=== PATIENT | female | born 1960 | race Caucasian/White ===

== ENCOUNTER → 2017-11-24 09:49 | Outpatient (CLI) | payer OTHER, SELFPAY ==
--- NOTE | 2017-11-24 09:52 | BI_ITS ---
MAMMOGRAPHY - BILATERAL SCREENING REASON FOR EXAM: Female, 57 years old. Routine annual screening examination. PERTINENT HISTORY: Non-contributory. TECHNIQUE: Digital bilateral breast asim (3D mammographic acquisition) in the CC and MLO projections. 2-D mediolateral oblique (MLO) and craniocaudad (CC) views of both breasts were obtained. CAD: Full Field Digital Mammography with Computer Added Detection was performed. COMPARISON: Comparison is made with prior study dated November 13, 2016 and November 13, 2015. FINDINGS: Breast Composition: There are scattered areas of fibroglandular density. There are no dominant masses or suspicious calcifications. No other significant abnormalities are identified. There has been no significant change since the prior study. BI/SCREENING MAMM (CAD), BILAT IMPRESSION: Stable bilateral screening mammogram. Yearly follow-up mammogram recommended. (A) ASSESSMENT CATEGORY: BIRADS Category 1: Negative. A letter regarding these results will be sent to the patient by the facility within 30 days. Approximately 10% of breast cancers are not detected by mammography. A normal mammogram should not delay biopsy of a clinically suspicious abnormality. [id number] Electronically Signed: Alexis Sylvester MD at 11:11 EDT Tel [phone], Service support ,
== END ==
PROVIDERS: Visit Provider Obstetrics & Gynecology Gynecology
DX: Z12.31 Encounter for screening mammogram for malignant neoplasm of breast (principal)
CPT/HCPCS: 77063; 77067

== ENCOUNTER → 2018-11-27 09:54 | Outpatient (CLI) | payer OTHER, SELFPAY ==
--- NOTE | 2018-11-27 09:56 | BI_ITS ---
MAMMOGRAPHY - BILATERAL SCREENING REASON FOR EXAM: Female, 58 years old. Routine annual screening examination. PERTINENT HISTORY: Non-contributory. TECHNIQUE: Digital bilateral breast pamela (3D mammographic acquisition) in the CC and MLO projections. 2-D mediolateral oblique (MLO) and craniocaudad (CC) views of both breasts were obtained. CAD: Full Field Digital Mammography with Computer Added Detection was performed. COMPARISON: Comparison is made with prior study dated November 24, 2017 and November 13, 2016. FINDINGS: Breast Composition: There are scattered areas of fibroglandular density. There are no dominant masses or suspicious calcifications. No other significant abnormalities are identified. There has been no significant change since the prior study. BI/SCREEN MAMM (CAD) W/PAMELA BILAT IMPRESSION: Stable bilateral screening mammogram. Yearly follow-up mammogram recommended. (A) ASSESSMENT CATEGORY: BIRADS Category 1: Negative. A letter regarding these results will be sent to the patient by the facility within 30 days. Approximately 10% of breast cancers are not detected by mammography. A normal mammogram should not delay biopsy of a clinically suspicious abnormality. [id number] Electronically Signed: Alexis Sylvester, at 8:53 EDT , Service support ,
== END ==
PROVIDERS: Referring Provider Obstetrics & Gynecology Gynecology; Visit Provider Obstetrics & Gynecology Gynecology
DX: Z12.31 Encounter for screening mammogram for malignant neoplasm of breast (principal)
CPT/HCPCS: 77063; 77067

== ENCOUNTER → 2019-12-02 | Outpatient (CLI) | payer OTHER, SELFPAY ==
--- NOTE | 2019-12-02 08:42 | BI_ITS ---
MAMMOGRAPHY - BILATERAL SCREENING REASON FOR EXAM: Female, 59 years old. Routine annual screening examination. PERTINENT HISTORY: Non-contributory. TECHNIQUE: Digital bilateral breast pamela (3D mammographic acquisition) in the CC and MLO projections. 2-D mediolateral oblique (MLO) and craniocaudad (CC) views of both breasts were obtained. CAD: Full Field Digital Mammography with Computer Added Detection was performed. COMPARISON: Comparison is made with prior study dated November 27, 2018 and November 24, 2017. FINDINGS: Breast Composition: The breasts are heterogeneously dense, which may obscure small masses. There are no dominant masses or suspicious calcifications. No other significant abnormalities are identified. There has been no significant change since the prior study. BI/SCREEN MAMM (CAD) W/PAMELA BILAT IMPRESSION: Stable bilateral screening mammogram. Yearly follow-up mammogram recommended. (A) ASSESSMENT CATEGORY: BIRADS Category 1: Negative. A letter regarding these results will be sent to the patient by the facility within 30 days. Approximately 10% of breast cancers are not detected by mammography. A normal mammogram should not delay biopsy of a clinically suspicious abnormality. [id number] Electronically Signed: Alexis Sylvester, at 9:49 EDT , Service support ,
== END | disposition home or self-care (01) ==
LOC: OPBI 08:40
PROVIDERS: Referring Provider Obstetrics & Gynecology Gynecology; Visit Provider Obstetrics & Gynecology Gynecology
DX: Z12.31 Encounter for screening mammogram for malignant neoplasm of breast (principal)
CPT/HCPCS: 77063; 77067

== ENCOUNTER → 2020-12-20 11:25 | Outpatient (CLI) | payer OTHER, SELFPAY ==
--- NOTE | 2020-12-20 11:29 | BI_ITS ---
MAMMOGRAPHY - BILATERAL SCREENING REASON FOR EXAM: Female, 60 years old. Routine annual screening examination. PERTINENT HISTORY: Screening TECHNIQUE: Digital bilateral breast pamela (3D mammographic acquisition) in the CC and MLO projections. 2-D mediolateral oblique (MLO) and craniocaudad (CC) views of both breasts were obtained. CAD: Full Field Digital Mammography with Computer Added Detection was performed. COMPARISON: Previous mammogram obtained on 12/02/2019 FINDINGS: Breast Composition: Heterogeneous There are no dominant masses or suspicious calcifications. No other significant abnormalities are identified. BI/SCRN MAMM (CAD)W/PAMELA BILAT IMPRESSION: Stable bilateral screening mammogram. Yearly follow-up mammogram recommended. (A) ASSESSMENT CATEGORY: BIRADS Category 1: Negative. A letter regarding these results will be sent to the patient by the facility within 30 days. Approximately 10% of breast cancers are not detected by mammography. A normal mammogram should not delay biopsy of a clinically suspicious abnormality. [id number] Electronically Signed: Unruly Soliman DO at 11:11 EDT Tel , Service support ,
== END ==
PROVIDERS: Referring Provider Obstetrics & Gynecology Gynecology; Visit Provider Obstetrics & Gynecology Gynecology
DX: Z12.31 Encounter for screening mammogram for malignant neoplasm of breast (principal)
CPT/HCPCS: 77063; 77067

== ENCOUNTER → 2022-02-27 | Outpatient (CLI) | payer OTHER, SELFPAY ==
--- NOTE | 2022-02-27 10:08 | BI_ITS ---
MAMMOGRAPHY - BILATERAL SCREENING REASON FOR EXAM: Female, 61 years old. Routine annual screening examination. PERTINENT HISTORY: Non-contributory. TECHNIQUE: Digital bilateral breast pamela (3D mammographic acquisition) in the CC and MLO projections. 2-D mediolateral oblique (MLO) and craniocaudad (CC) views of both breasts were obtained. CAD: Full Field Digital Mammography with Computer Added Detection was performed. COMPARISON: Comparison is made with prior study dated 12/20/2020 and 12/02/2019. FINDINGS: Breast Composition: The breasts are heterogeneously dense, which may obscure small masses. There are no dominant masses or suspicious calcifications. No other significant abnormalities are identified. There has been no significant change since the prior study. BI/SCRN MAMM (CAD)W/PAMELA BILAT IMPRESSION: Stable bilateral screening mammogram. Yearly follow-up mammogram recommended. (A) ASSESSMENT CATEGORY: BIRADS Category 1: Negative. A letter regarding these results will be sent to the patient by the facility within 30 days. Approximately 10% of breast cancers are not detected by mammography. A normal mammogram should not delay biopsy of a clinically suspicious abnormality. [id number] Electronically Signed: Alexis Sylvester MD at 12:25 EDT ,
--- NOTE | 2022-02-27 10:10 | BD_ITS ---
STUDY: DUAL ENERGY X-RAY ABSORPTIOMETRY / DXA REASON FOR EXAM: Female, 61 years old. M810 TECHNIQUE: Bone Mineral Density (BMD) measurements of lumbar spine and bilateral hips were obtained. COMPARISON: Comparison is made with prior study 02/03/2017. FINDINGS: Lumbar Spine (L1-L4): g/cm2 (0.885) / T-score (-1.5) / Z-score (0.2) Findings are suggestive of osteopenia with a low fracture risk. Left Femur Total: g/cm2 (0.905) / T-score (-0.3) / Z-score (0.9) Left Femoral Neck: g/cm2 (0.831) / T-score (-0.2) / Z-score (1.3) Right Femur Total: g/cm2 (0.865) / T-score (-0.6) / Z-score (0.5) Right Femoral Neck: g/cm2 (0.778) / T-score (-0.6) / Z-score (0.8) The T-Scores on the most recent prior examination were: Lumbar Spine (L1-L4): There has been worsening of bone density since the previous examination. Left Femur Total: which represents a worsening of 3.8%. Right Femur Total: which represents a worsening of 3.9%. BD/Dexa Bone Density Study IMPRESSION: The patient is considered osteopenic as outlined below according to World Chad Organization (WHO) criteria with a low fracture risk. There has been worsening of bone density since the previous examination. Reference Information: The T-score is the number of standard deviations above or below the standard which is normal for young adults at their peak bone mineral density. The World Health Organization (WHO) interprets the T-scores as follows: Above -1 Normal bone density Between -1 and -2.5 Osteopenia Equal to / or below -2.5 Osteoporosis As a practical clinical guideline, osteopenia may be graded as follows: Mild -1 through -1.5 Moderate -1.6 through -2.0 Severe -2.1 through -2.4 The Z-score is the number of standard deviations above or below age-matched controls. A Z-score of less than -1.5 would be considered abnormal. References: 1. NIH Osteoporosis and Related Bone Diseases www osteo.org 2. International Society for Clinical Densitometry www iscd.org 3. National Osteoporosis Foundation www nof.org Electronically Signed: Alexis Sylvester MD at 10:26 EDT ,
== END | disposition home or self-care (01) ==
LOC: OPBD 10:04
PROVIDERS: Referring Provider Obstetrics & Gynecology Gynecology; Visit Provider Obstetrics & Gynecology Gynecology
DX: Z12.31 Encounter for screening mammogram for malignant neoplasm of breast (principal); M85.80 Other specified disorders of bone density and structure, unspecified site; M81.0 Age-related osteoporosis without current pathological fracture
CPT/HCPCS: 77063; 77067; 77080

== ENCOUNTER → 2023-03-05 | Outpatient (CLI) | payer OTHER, SELFPAY ==
--- NOTE | 2023-03-05 11:56 | BI_ITS ---
MAMMOGRAPHY - BILATERAL SCREENING REASON FOR EXAM: Female, 62 years old. Routine annual screening examination. PERTINENT HISTORY: Non-contributory. TECHNIQUE: Digital bilateral breast pamela (3D mammographic acquisition) in the CC and MLO projections. 2-D mediolateral oblique (MLO) and craniocaudad (CC) views of both breasts were obtained. CAD: Full Field Digital Mammography with Computer Added Detection was performed. COMPARISON: Comparison is made with prior study February 27, 2022 and December 20, 2020. FINDINGS: Breast Composition: The breasts are heterogeneously dense, which may obscure small masses. There are no dominant masses or suspicious calcifications. Stable bilateral fat containing axillary lymph nodes. No other significant abnormalities are identified. There has been no significant change since the prior study. BI/SCRN MAMM (CAD)W/PAMELA BILAT IMPRESSION: Stable bilateral screening mammogram. Yearly follow-up mammogram recommended. (A) ASSESSMENT CATEGORY: BIRADS Category 2: Benign. A letter regarding these results will be sent to the patient by the facility within 30 days. Approximately 10% of breast cancers are not detected by mammography. A normal mammogram should not delay biopsy of a clinically suspicious abnormality. [id number] Electronically Signed: Alexis Sylvester MD at 15:13 EDT ,
== END | disposition home or self-care (01) ==
LOC: OPBI 11:55
PROVIDERS: Referring Provider Obstetrics & Gynecology Gynecology; Visit Provider Obstetrics & Gynecology Gynecology
DX: Z12.31 Encounter for screening mammogram for malignant neoplasm of breast (principal)
CPT/HCPCS: 77063; 77067

== ENCOUNTER → 2024-03-29 | Outpatient (CLI) | payer MEDICARE, OTHER, SELFPAY ==
--- NOTE | 2024-03-29 14:05 | BI_ITS ---
MAMMOGRAPHY - BILATERAL SCREENING REASON FOR EXAM: Female, 63 years old. Routine annual screening examination. PERTINENT HISTORY: Non-contributory. TECHNIQUE: Digital bilateral breast pamela (3D mammographic acquisition) in the CC and MLO projections. 2-D mediolateral oblique (MLO) and craniocaudad (CC) views of both breasts were obtained. CAD: Full Field Digital Mammography with Computer Added Detection was performed. COMPARISON: Comparison is made with prior study March 05, 2023 and February 27, 2022. FINDINGS: Breast Composition: The breasts are heterogeneously dense, which may obscure small masses. There are no dominant masses or suspicious calcifications. No other significant abnormalities are identified. There has been no significant change since the prior study. BI/SCRN MAMM (CAD)W/PAMELA BILAT IMPRESSION: Stable bilateral screening mammogram. Yearly follow-up mammogram recommended. (A) ASSESSMENT CATEGORY: BIRADS Category 1: Negative. A letter regarding these results will be sent to the patient by the facility within 30 days. Approximately 10% of breast cancers are not detected by mammography. A normal mammogram should not delay biopsy of a clinically suspicious abnormality. [id number] Electronically Signed: Alexis Sylvester MD at 14:45 EST ,
== END | disposition home or self-care (01) ==
LOC: OPBI 14:03
PROVIDERS: Referring Provider Obstetrics & Gynecology Gynecology; Visit Provider Obstetrics & Gynecology Gynecology
DX: Z12.31 Encounter for screening mammogram for malignant neoplasm of breast (principal)
CPT/HCPCS: 77063; 77067

== ENCOUNTER → 2025-03-29 | Outpatient (CLI) | payer MEDICARE, OTHER, SELFPAY ==
--- NOTE | 2025-03-29 13:28 | BI_ITS ---
EXAM: SCRN MAMM (CAD)W/PAMELA BILAT DATE: 03/29/2025 CLINICAL HISTORY: F, Age 64 y/o , SCREENING No family history. TECHNIQUE: Procedure Code: [id number] Modality: MG Procedure: SCRN MAMM (CAD)W/PAMELA BILAT COMPARISON: Prior exam(s) dated March 29, 2024.. FINDINGS: TISSUE DENSITY: The breasts are heterogeneously dense, which may obscure small masses. Bilateral Breast Mammographic Findings: No significant masses, calcifications or other abnormalities are identified. No suspicious masses, areas of developing architectural distortion, or suspicious calcifications. There has been no significant interval change. BI/SCRN MAMM (CAD)W/PAMELA BILAT IMPRESSION: Stable bilateral screening mammogram. OVERALL FINAL ASSESSMENT BI-RADS 1: NEGATIVE. RECOMMENDATION: Routine annual follow-up in 1 Year Additional Recommendation none A letter with findings and recommendations will be mailed to the patient. Reading Location: [place] [id number]
--- OUTSIDE RECORDS SUMMARY | 2025-03-29 18:33 | XMS RPT_ITS | CCD ---
Author Organization [facility] Inform ion Partnership [facility] Care Team Providers Care Phonograph Cartridge Assembler Name Role Phone MARIELA TALBERT Primary Care Unavaillisa Villatoro MD, Charlene Alexander Unavailable Mariela Talbert MD Primary Care Provider MARIELA TALBERT Referring MARIELA Gutierrez Primary Care UnavailJEOVANY Salcedo Attending Unavaila betsy TALBERT MD, MARIELA Primary Care Physician [phone] MARIELA TALBERT MD Primary Care Unavailab laura HUYNH MD, MARISSA Attending Unavailable AMINA ROSA, MARISSA Attending Unavailable MARIELA TALBERT MD Primary Care UnavailMariela Campo MD Primary Care Provider ELIGIO CAMPOS MSN HOTEL OFFICE MANAGER [facility] Primary Care Unava ilable Amina, Marissa Referring Unavailable Amina, Marissa Attending Unavailable Medications Current Medications Medication Drug Class(es) Dates Sig (Normalized) Sig (Original) acetaminophen 325 mg / HYDROcodone bitartrate 5 mg oral tablet (2 sources) Opioid Agonist Start: 09-20-2016 take 1 tablet by mouth every four hours as needed Hydrocodone-Acetamin ophen Active 1 TABLET PO EVERY 4 HOURS NEEDED September 20, 2016 12:00am cholecalciferol 0.05 mg oral tablet (5 sources) Vitamin D Start: 09-22-2016 take 1 tablet by mouth every week cholecalciferol (VITAMIN D3) 50 mcg (2,000 unit) tablet Take 5,000 Units by mouth one time a week. 09/22/2016 Active Start: 09-22-2016 VITAMIN D3 200 0 UNIT TABS 1 tablet once daily CHOLECALCIFEROL [id number] Steven Soliman RN Comment on above: Take 5,000 Units by mouth one time a week. cranberry fruit (CRANBERRY) 450 mg tab (4 sources) cranberry fruit (CRANBERRY) 450 mg tab Take 450 mg by mouth. Active cranberry fruit (CRANBERRY) 450 mg tab Take 450 mg by mouth. 0 Active Comment on above: Take 450 mg by mouth . Cranberry preparation (3 sources) Non-Standardized Food Allergenic Extract, Non-Standardized Plant Allergenic Extract Start: 12-03-2020 take 1 capsule by mouth once daily cranberry oral capsule Dose = 1 cap(s), Oral, Daily, 0 Refill(s) Start Date: 12/03/20 Status: Ordered Start: 08-27-2018 take 1 capsule by mo [facility] once daily CRANBERRY 500 MG CAPS 1 capusle by mouth daily CRANBERRY [id number] Charlene Villatoro MD D-Mannose (2 sources) Start: 07-27-2023 D-Mannose D-Ma nnose, 0 Refill(s), 68.1 Start Date: 07/27/23 Status: Ordered metFORMIN hydrochloride 1000 mg / SITagliptin 50 mg oral tablet (9 sources) Biguanide, Dipeptidyl Peptidase 4 Inhibitor Start: 09-22-2016 JANUMET XR 50-1000 M G [id number] 1 tablet twice daily SITAGLIPTIN-METFORMIN HCL [id number] Steven Soliman RN Start: 09-20-2016 take 1 tablet by vannesa th twice daily Janumet 50 / 1000 mg oral tablet Dose = 1 tab(s), Oral, BID, # 60 tab(s), 0 Refill(s) Start Date: 12/03/20 Status: Ordered Comment on above: Take 1 tablet by vannesa th twice daily with meals. Probiotic (2 sources) Start: 12-03-2020 Probiotic 0 Refill(s) Start Date: 12/03/20 Status: Ordered rosuvastatin calcium 20 mg oral tablet (6 sources) HMG-CoA Reductase Inhibitor Start: 12-03-2020 rosuvastatin 20 mg oral tablet Dose : 20 mg = 1 tab(s), Oral, Daily, 0 Refill(s) Start Date: 12/03/20 Status: Ordered Comment on above: Take 20 mg by mouth once daily. semaglutide 7 mg oral tablet (2 sources) Start: 02-17-2023 Rybelsus 7 mg oral tablet Dose : 7 mg = 1 tab(s), Oral, qDay, take at least 30 minutes before first food, beverage, or other oral meds, # 30 tab(s), 0 Refill(s) Start Date: 02/17/23 Status: Ordered Vitamin D3 (2 sources) Start: 12-03-2020 Vitamin D3 Dose : 5,000 unit(s) = 1 cap(s), Oral, qDay, 0 Refill(s) Start Date: 12/03/20 Status: Ordered Completed/Discontinued Medications Medication Drug Class(es) Dates Sig (Normalized) Sig (Original) aspirin 81 mg chewable tablet (1 source) Platelet Aggregation Inhibitor, Nonsteroidal Anti-inflammatory Drug Start: 09-22-2016 CHILDRENS ASPIRIN 81 MG CHEW 1 tablet once daily ASPIRIN [id number] Terena Soliman RN 90 day estradiol 0.179676 mg/hr vaginal system (2 sources) Estrogen Start: 07-27-2023 Estring 2 mg vaginal ring 2 mg Dose = 1 EA, Vaginal, i0edtoa, # 1 EA, 0 Refill(s), Pharmacy: [facility]/pharmacy #[id number], Urgency of urination Pelvic pain, 165, cm, 07/27/23 10:35:00 EDT, Height, kg, 07/27/23 10:35:00 EDT, Dosing Weight Start Date: 07/27/23 Status: Ordered ibuprofen 200 mg oral tablet (1 source) Nonsteroidal Anti-inflammatory Drug Start: 09-22-2016 ADVIL 200 MG TABS 3 tablets (600mg) as directed as needed for pain IBUPROFEN [id number] Terena Soliman RN naproxen sodium 550 mg oral tablet (1 source) Nonsteroidal Anti-inflammatory Drug Start: 08-27-2018 NAPROXEN SODIUM 550 MG TABS 1 tablet per day for arthritis NAPROXEN SODIUM [id number] Charlene Villatoro MD Problems Active Problems Problem Classification Problem Date Documented Date Episodic/Chronic Abdominal pain (2 sources) Pelvic and perineal pain; Translations: [Pelvic and perineal pain] Onset: 07-27-2023 Episodic Fracture of upper limb (1 source) Other intraarticular fracture of lower end of right radius, initial encounter for closed fracture; Translations: [Other intraarticular fracture of lower end of right radius, initial encounter for closed fracture] Onset: 08-27-2018 08-27-2018 Episodic Genitourinary symptoms and ill-defined conditions (2 sources) Urgency of urination; Translations: [Urgency of urination] Onset: 07-27-2023 Episodic Other and unspecified benign neoplasm (2 sources) History of polyp of colon; Translations: [Personal history of colonic polyps] 12-22-2022 Episodic Other and unspecified benign neoplasm (1 source) Personal history of colonic polyps; Translations: [Personal history of colonic polyps] Onset: 02-26-2023 Episodic Other connective tissue disease (1 source) Disorder of tendon; Translations: [Closed dislocation of other part of wrist] Onset: 09-24-2018 09-24-2018 Episodic Other screening for suspected conditions (not mental disorders or infectious disease) (1 source) Encounter for screening mammogram for malignant neoplasm of breast; Translations: [Encounter for screening mammogram for malignant neoplasm of breast] Onset: 04-26-2024 Episodic Residual codes; unclassified (2 sources) Family history of cancer of colon; Translations: [Family history of malignant neoplasm of digestive organs] 12-22-2022 Episodic Residual codes; unclassified (1 source) Family history of malignant neoplasm of digestive organs; Translations: [Family history of colon cancer] Onset: 02-26-2023 Episodic Past or Other Problems Problem Classification Problem Date Documented Da te Episodic/Chronic Fracture of upper limb (1 source) Closed fracture of neck of radius; Translations: [Nondisplaced fracture of neck of left radius, initial encounter for closed fracture] Onset: 09-24-2016 09-24-2016 Episodic Unclassified (1 source) Unspecified fracture of the lower end of right radius, initial encounter for closed fracture Onset: 08-24-2018 Unclassified (1 source) Problem Results Test Name Value Interpretation Reference Range Facility SCRN MAMM (CAD)[facility]/[place] [facility] 03-29-2024 SCRN MAMM (CAD)W/[facility] [address], [place] [address] SCRN MAMM (CAD)[facility] MR#: [id number] Acct: [id number] Name: MURIEL HARGROVE Rep #: [id number] : 1960 F 63 From: Alexis herrera MD PCP: MARIELA TALBERT Status: REG CL Study: SCRN MAMM (CAD)W/[place] [facility] Date of Exam: 03/18 07/11 Exam# [id number] Ordering Dr: Marissa Huynh MD [id number] MAMMOGRAPHY - BILATERAL SCREENING REASON FOR EXAM: Female, 63 years old. Routine annual screening examination. PERTINENT HISTORY: Non-contributory. TECHNIQUE: Digital bilateral breast [place] (3D mammographic acquisition) in the CC and MLO projections. 2-D mediolateral oblique (MLO) and craniocaudad (CC) views of both breasts were obtained. CAD: Full Field Digital Mammography with Computer Added Detection was performed. COMPARISON: Comparison is made with prior study March 05, 2023 and February 27, 2022. FINDINGS: Breast Composition: The breasts are heterogeneously dense, which may obscure small masses. There are no dominant masses or suspicious calcifications. No other significant abnormalities are identified. There has been no significant change since the prior study. BI/SCRN MAMM (CAD)W/[place] [facility] IMPRESSION: Stable bilateral screening mammogram. Yearly follow-up mammogram recommended. (A) ASSESSMENT CATEGORY: BIRADS Category 1: Negative. A letter regarding these results will be sent to the patient by the facility within 30 days. Approximately 10% of breast cancers are not detected by mammography. A normal mammogram should not delay biopsy of a clinically suspicious abnormality. [id number] Electronically Signed: Alexis Sylvester MD at 14:45 EST , CC: Dr. Marissa Huynh MD; MARIELA TALBERT Bilingual Speech Language Pathologist: Signed [facility] 03-28-2024 CNPN Telephone (AGENDOG) MURIEL HARGROVE ([id number]) 1960 F Date Time Provider Department 03/28/24 ENDO AGENDOG During your visit today, we recorded the following information about you: Nelson Landeros PSS 03/28/2024 4:46 PM Signed Patient placed an appt. Request on the web for DM 2 independent called and she asked me to call her back I called back in the afternoon and no VM set up. MADELYN Guallpa March 28, 2024 4:46 PM Allergies As of Date: 03/28/2024 (No Known Allergies) Date Reviewed: 02/26/2023 Reviewed by: Rob Syed - Fully Assessed Prescriptions as of 03/28/2024 - rosuvastatin (CRESTOR) 20 mg tablet Take 20 mg by mouth once daily. - cholecalciferol (VITAMIN D3) 50 mcg (2,000 unit) tablet Take 5,000 Units by mouth one time a week. - cranberry fruit (CRANBERRY) 450 mg tab Take 450 mg by mouth. - sitaGLIPtin-metFORMIN (JANUMET) 50-1,000 mg per tablet Take 1 tablet by mouth twice daily with meals. Problem List As Of Date: 03/28/2024 (None) Encounter Status:Closed by NELSON LANDEROS on 03/28/24 [facility] Aide Cytology Reporton 2023 Kindergarten Aide Cytology Report . Pathology Reports Accession: Collected Date/Time: Received Date/Time: Pathologist: [id number] 07/27/2023 14:00 EDT 07/27/2023 18:00 EDT Kindergarten Aide Cytology Report SPECIMEN: Specimen Description: Liquid Prep w/ HPV Specimen: Cervical/Endocervical Screening or Diagnostic: Screening RELEVANT HISTORY: LMP: menopausal SPECIMEN ADEQUACY: SATISFACTORY FOR EVALUATION Endocervical/Transform ational zone component absent/insufficient INTERPRETATION/RESULTS : NEGATIVE FOR INTRAEPITHELIAL LESION OR MALIGNANCY HIGH RISK HPV TESTING: Event Code Result HPV Interp See Interp HPVN HPV Interp Text: High Risk HPV Typing: NEGATIVE HPV types 16, 18, 31, 33, 35, 39, 45, 51, 52, 56, 58, 59, 66 and 68 DNA were undetectable or below the pre-set threshold. The rk High-Risk HPV DNA Test is not intended for use as a screening device for Pap normal women under age 30 and is not intended to substitute for regular Pap screening. The rk High-Risk HPV DNA Test is designed to augment existing methods for the detection of cervical disease and should be used in conjunction with clinical information derived from other diagnostic and screening tests, physical examinations and full medical history in accordance with appropriate patient management procedures. NOTE: A negative result does not preclude the presence of HPV infection because results depend on adequate specimen collection, absence of inhibitors and sufficient DNA to be detected. As of: 08/06/23 12:04 EDT COMMENT: This Pap Test was successfully processed and evaluated with the assistance of the [employer] ThinPrep Test Imaging System. Pathology Reports Accession: Collected Date/Time: Received Date/Time: Pathologist: [id number] 07/27/2023 14:00 EDT 07/27/2023 18:00 EDT Electronically Signed by Pathology report verified by [facility] Screened by: [place] Electronically signed by Marie DUVAL (ASCP) Sign-Out Date: 08/06/2023 12:04 Performing Lab: [facility], [address] [place] [address] Pathology Dept Disclaimer The Pap test is a screening test for cervical cancer. As evidenced by published data, it is subject to both inherent false negative and false positive results. Your patient's results should be interpreted in context with pertinent clinical history including gynecological examination. Normal [facility] ([place]) HPVon 07-31-2023 HPV Interp Normal See Interp HPVN [facility] ([place]) Comment on above: Order Comment: Order placed by AP_HPV_ORDER rule from [id number] Result Comment: High Risk HPV Typing: NEGATIVE HPV types 16, 18, 31, 33, 35, 39, 45, 51, 52, 56, 58, 59, 66 and 68 DNA were undetectable or below the pre-set threshold. The rk High-Risk HPV DNA Test is not intended for use as a screening device for Pap normal women under age 30 and is not intended to substitute for regular Pap screening. The rk High-Risk HPV DNA Test is designed to augment existing methods for the detection of cervical disease and should be used in conjunction with clinical information derived from other diagnostic and screening tests, physical examinations and full medical history in accordance with appropriate patient management procedures. NOTE: A negative result does not preclude the presence of HPV infection because results depend on adequate specimen collection, absence of inhibitors and sufficient DNA to be detected. See [facility]anner HPVN Performed By: #### H PV #### [place] [address] HPV Source Cervix Normal [facility] ([place]) Comment on above: Order Comment: Order placed by AP_HPV_ORDER rule from [id number] Performed By: #### H PV #### [place] [address] LABORATORYOrdered By: Nga Jacob on 07-27-2023 HPV Inter High Risk HPV Typing : NEGATIVEHPV types 16, 18, 31, 33, 35, 39, 45, 51, 52, 56, 58, 59, 66 and 68 DNA wereundetectable or below the pre-set threshold.The rk High-Risk HPV DNA Test is not intended for use as a screening device forPap normal women under age 30 and is not intended to substitute for regular Papscreening.The rk High-Risk HPV DNA Test is designed to augment existing methods for thedetection of cervical disease and should be used in conjunction with clinicalinformation derived from other diagnostic and screening tests, physical examinationsand full medical history in accordance with appropriate patient managementprocedures.N OTE: A negative result does not preclude the presence of HPV infection because resultsdepend on adequate specimen collection, absence of inhibitors and sufficientDNA to be detected. Normal See Interp HPVN AH Auto Viro/Sero SS Specimen source Nom (Unsp spec) Cervix (07/27/23 2:00 PM) Normal AH Auto Viro/Sero SS LABORATORYOrdered By: Julián mejia on 07-27-2023 Appearance (U) Clear (07/27/23 11:01 AM) Normal Clear AO Auto Urine SS Bilirubin Ql (U) Negative (07/27/23 11:01 AM) Normal Negative AO Auto Urine SS Color (U) Yellow (07/27/23 11:01 AM) Normal AO Auto Urine SS Glucose Test strip (U) [Mass/Vol] Negative Normal Negative AO Auto Urine SS Hemoglobin Auto test strip (U) [Mass/Vol] Trace *ABN* (07/27/23 11:01 AM) Invalid Interpretation Code Negative AO Auto Urine SS Ketones Ql (U) Negative Normal Negative AO Auto Ur ine SS UA Leuk Est Negative (07/27/23 11:01 AM) Normal Negative AO Auto Urine SS UA Nitrite Negative (07/27/23 11:01 AM) Normal Negative AO Auto Urine SS UA pH 7.0 (07/27/23 11:01 AM) Normal 5.0 - 8.0 AO Auto Urine SS UA Protein Negative Normal Negative AO Auto Urine SS UA Spec Grav 1.010 *ABN* (07/27/23 11:01 AM) Invalid Interpretation Code 1.015-1.025 AO Auto Urine SS UA Specimen Type Clean Catch (07/27/23 11:01 AM) Normal AO Auto Urine SS UA Urobilinogen 0.2 E.U./dL Normal 0.2-1.0 AO Auto Urine SS UAon 07-27-2023 Color (U) Yellow Normal [facility] ([place]) Comment on above: Performed By: #### U A #### [address] [address] Glucose (U) [Mass/Vol] Negative Normal Negative [facility] ([place]) Comment on above: Performed By: #### U A #### [place] [address] [place], [place] [address] Ketones Ql (U) Negative Normal Negative [facility] ([place]) Comment on above: Performed By: #### U A #### [address] [address] UA Appear Clear Normal Clear [facility] ([place]) Comment on above: Performed By: #### U A #### [address] [address] UA Blood Trace Abnormal Negative [facility] ([place]) Comment on above: Performed By: #### U A #### [address] [address] UA Leuk Est Negative Normal Negative [facility] ([place]) Comment on above: Performed By: #### U A #### [address] [address] UA Nitrite Negative Normal Negative [facility] ([place]) Comment on above: Performed By: #### U A #### [address] [address] UA pH 7.0 Normal 5.0 - 8.0 [facility] ([place]) Comment on above: Performed By: #### U A #### [address] [address] UA Protein Negative Normal Negative [facility] ([place]) Comment on above: Performed By: #### U A #### [address] [address] UA Spec Grav 1.010 Abnormal 1.015-1.025 [facility] ([place]) Comment on above: Performed By: #### U A #### [address] [address] UA Specimen Type Clean Catch Normal [facility] ([place]) Comment on above: Performed By: #### U A #### [address] [address] UA Urobilinogen 0.2 E.U./dL Normal 0.2-1.0 [facility] ([place]) Comment on above: Performed By: #### U A #### [address] [address] Urobilinogen (U) [Mass/Vol] Negative Normal Negative [facility] ([place]) Comment on above: Performed By: #### U A #### [place] [address] [address] SURGICAL PATHOLOGYOrdered By : Teo Azevedo on 03-02-2023 Case Report Surgical Pathology Report Case: [id number] Authorizing Provider: Jeovany Cohen, Collected: 02/26/2023 10:51 AM Ordering Location: Ambulatory Surgery Received: 02/26/2023 09:19 PM Pathologist: Teo Azevedo MD Specimen: TRANSVERSE COLON POLYP, proximal X2 [facility] Work Phone: FINAL DIAGNOSIS j1fzfGXjPLLgpJQgFPNh M1 jlkoQrGGUpyVQyN9Hbloxf SFspUO4zHO3nyTqhhSOhmX TrNNNjQjTti0ehe464nTGd b1mdMOCVlwdgzGu0qRabY2 6lf8C9EvaeK67tiTKdBLM8 HNXbNJQvtNUyFLEmUYN1QB GocNCmM7wjSHEcSM8pcyal MHskQFkiVOMqlTJ7LXVjfI XaY3PtGBCwKNhtOFRzoib4 FiTaPc6moSGdtTjuJKdsCT XwEAMuSSlfVWBmGtDpNE4v BEYiqN9iDYF1rzLuc9Adgj JkFVBajCzmQHIkjL4hm1d1 BTAgxnJpMTX2QiVqIYHeLU Odks8dKV7grSEakL== [facility] Work Phone: Gross Description h7oyjHJrROWhuWIKETF4 IjXS1mqPszcUu2fGqlYIKt ezR1vEOgIMfbf9mzDRO5w8 nlboILEwmzYAVsXN0aXBbz VWQtPC4uSbZlIVLdZrOfBZ BhcGVydzEyMjQwXHBhcGVy yAE6NBMwEP4ukzpqRBlcCT xeERPjtfJ3WSMszOWcZ9Lf XGOiOR6xpobdVPR5HZXGXf hbEc4xeVNnqPrpZaXqDoJf YXJzZXQwXGZuaWwgQXJpYW n0pC5KQsybTAC5BKVRQdsl NdggiMhoa8SjmRLdOZCdRK xcaWQgNTEwMDAgXFxkYiBP XiQaBoH1Vrh8ELc3FCHgSS m1VYffHrQWISn2TFp9HFNj VPd0VCdiUGfznYNbNJBfJU ZfNYKcUHhyvkL1q9jpPBOh gROaGEG8RGemk5jdHGvhJY F8KCNlRfXxZRRdPL1TNnAq SBXiFQh2NZW2NzO6ECv7HB DFMaKhIuApVub5NqL7TiVk QFg4KAl1AClIPmBiWTZwIf r6LPV4FUF9YXt6AeYgKDBp MiBcXHNzIDMgXFxmbCBcXG 4qgXhnGCIpIX8IDFIsUIof RMPvCeZjCX7dTRAUFuRUJU NJLJKZP5rNWqQQZ7yQNEzq dHJjaFxwYXIgDQpccGFyZC ANClxwbGFpblxsdHJjaFxm nfPtEPXyfVTGBCN7OM8aIO ANClxsdHJwYXJcbGluMFxy aO2rDD0AUHCmExOtFfLfDC g4TCWgfW3eEk0srWDppF0c XAQfBO30vFXpcRnjPVEzBF OcuvDwTzO4LU6wGUPtMgYx yImpm0PzSVXjS2MaN7J9wT 5jGSMwXXOjJkI8RFRaNfN9 QSFrCYZtaQ2qXQ11ESbpaN SzaUUgaQB4EUKhwE6rc09q GHDos4OrxQKlXlTcrYYgDG 6YDGSrrjHQWhfid9EtEHW4 HM7lylL5oE6sKFJjevExky 5bGYNeyVWAqSP0DXcdjyZy N7wzahylEIA3ZREiAAX5F0 dpNBVJpqTxTRFYkZL2XQwj rvBtHR9WENF3NBc5OQXrgk ANClxwYXIgDQpGRlMgMTAv MTMvMjAyMyAxOjUwIEFNXH BhciANClxzYTMwXGVwaWNY v5JoGQULXywrqLwgBgXwzI TvYpV2KUTciJUsMNR5JO5p dTzzAROfY1FrE7HrmwM7BZ PkutQWJelrGETkGH0EFPVy MjIgDQp9 [facility] Work Phone: Performing Lab a0nhwOKvEOZvrPYwSxYz MD PgFMHob3viHTLkzMMsOfDj MzNcZnRuYmpcdWMxXGRlZm Her1cgp529fODgq8ihFZLw AtU3zQLbUQFrdJDrN463NJ NgCNjkx3jfj8TyZAVhbDIc m9M4QRPLojoasZk7dInkM5 8ag6N0XimrN8xmSNSzSOEx D2UtAG2yPJKdXyu0THX8LF B7WGOwLROwJ9ZgWT2eTKJp sBGsPFz6c3dqvOrtXBMwXX W9a1orLYyfhfFjCQ6pwc0p tSf4j4tdtiZsOFXpDEReyL NQIFJcX9PisIjwLp6nxNo0 wIfgLucmMEQ8Ren6XX3aob 06roi5nBtmWCQpnazlFjR7 XVadDPNifbyhHCz7AVrcJP YyhOI9FSNdhNCiD5FjURUo GP1zqoa5CIU9SThgKIAgQv M6LTOkuWIzIVYrjYlzYEfj o473IXQ4AuOtCG5cE9Srj3 P9xW9kcPVkTKWxlIDsNpQx OCCajv5tlXImQCsry6TgAM W6qjK0lTQbbFQmBEFtHL40 Spzgx0TaSgbzb7DtN89lcH L2KGqjp5rhIM8mPuP3bfTf AWgtb5jokC6aIsF4HKjgMR 3vBD7lBGAueB8kvhkmBXNr YnJkcmhlYWRccGdicmRyZm 0xuEjcPFI6VNtgE7xulM6g FgI8WBhxO2yrsI5yBGc6MS vpuAZ3UFYqxN0dAR9qigrm g2vkFArtIHqeCCZztxE0wc D4HPQyvNTbV7WqqL5fQOTp XS1qdmywo0jeOWB6BGyjRV BlJBF0JmDcMEOjv4Hoalf3 WqIya5QrsOTwBJxdI10us7 32RBDlsuOrU5rjuUToqkea mNEifbzdNUyaeaE4SDXdRB BsYWluXGYxXGZzMjJcbGFu ZzEwMzNcaGljaFxmMVxkYm MgMEWfYCudQ0niKkZpEyGk FbXZnAVqcx1qdNsrHReezR UsvDVzrKO9kG7gRXDnhdRk fu2hHJDqoXSNjCX7MVsrjt SuG0ulvtloCHIdFLHac86w YWivMuI8IRIxH3XlLCNiZw 5lJWkwVsMbN4z5x95cCYXT FHG5IADqRwPnGGCPDXfMMl JxRrEpEAh3EDh4KMKbyeby FAStcOowjE4mRzHzGlKbYh cyWV1yLNHyI4qdsTHvUSDt XSYxQ7igKeEmvT9pwLdjMP xjZjJcZnMyMlxsdHJjaCBM BXHnuiI7f8B1QZxwjJJepr xmMVxmczIyXGxhbmcxMDMz VSvjZ6maYsPwXHJdlIazKI vyy1RxFAEnEPWxUhLfLSbt SVG3l9H9IQVpPSHycOQNoP E1TCJNEeQmDREbii0= [facility] Work Phone: [facility] Work Phone: ANES POSTPROC EVALon 023 ANES POSTPROC EVAL HNO ID: [id number] Author: Kimberly Castano APRN.EXTRUSION DIE COORDINATOR Service: ? Author Type: Nurse Dentist Attendant Type: Anesthesia Postprocedure Evaluation Filed: 02/26/2023 11:07 AM Note Text: POST ANESTHESIA EVALUATION NOTE : 1960 Procedure Summary Date: 02/26/23 Room / Location: Ambulatory Surgery Anesthesia Start: 1036 Anesthesia Stop: 1107 Procedure: COLONOSCOPY SCREENING Diagnosis: Personal history of colonic polyps Family history of colon cancer (High risk colon cancer surveillance: Personal history of colonic polyps) Scheduled Providers: Jeovany Cohen MD Responsible Provider: Kimberly Castano APRN.CRNA Anesthesia Type: MAC ASA Status: 2 Anesthesia Type: MAC Last Vitals Vitals Value Taken Time BP 125/65 02/26/23 1103 Temp 37 ?C (98.6 ?F) 02/26/23 1103 Pulse 75 02/26/23 1103 Resp 16 02/26/23 1103 SpO2 94 % 02/26/23 1103 Post Anesthesia Patient Status Patient Evaluation: PACU. PACU/ICU Patient Condition: stable. Anticipated Disposition: phase 2 then home. Neurological Status: sleepy but arousable. Pulmonary Status: breathing comfortably on room air Airway Control: returned to baseline unsupported. Cardiovascular Status: stable. Pain Management: clinically adequate - multimodal analgesia pain management approach Postoperative Hydration: acceptable. Intraoperative Events: no significant anesthesia events Post Operative Nausea/Vomiting Status: no significant post operative nausea or vomiting Recommendation: continue current plan of care. Anesthesia Observations No Documentation SIGNATURE: Kimberly Castano APRN.EXTRUSION DIE COORDINATOR PATIENT NAME: Muriel Hargrove DATE: February 26, 2023 TIME: 11:07 AM CSN: [id number] Normal [facility] ANES PRE-OPon 02-26-2023 ANES PRE-OP HNO ID: [id number] Author: Kimberly Castano APRN.FLORINA Service: ? Author Type: Nurse Dentist Attendant Type: Anesthesia Preprocedure Evaluation Filed: 02/26/2023 10:34 AM Note Text: ANESTHESIOLOGY DAY OF SURGERY NOTE : 1960 Procedure Information Date/Time: 02/26/23 1030 Scheduled providers: Jeovany Cohen MD Procedure: COLONOSCOPY SCREENING Location: Ambulatory Surgery Estimated body mass index is 26.13 kg/m? as calculated from the following: Height as of this encounter: 165.1 cm (5' 5). Weight as of this encounter: 71.2 kg (157 lb). Most recent hematocrit and potassium results: No results found for this basename: HCT,HEMATOCRIT,K,POTAS SIUM Relevant Problems No relevant active problems I - PHYSICAL EVALUATION AIRWAY Patient intubated: No. Tracheostomy tube not present Mallampati: II. TM distance: >3 FB. Neck ROM: full ROM without neurological symptoms. Mouth opening: adequate. Short neck: no. Thick neck: no Caldera present: no Microretrognathia/Micr onagthia/Recessed Chin: No DENTAL Dental findings: teeth intact. Additional exam findings: no II - ANESTHESIA PLAN ASA Score: 2 Anesthetic Plan: MAC The patient is not a current smoker. NPO Status: adequate Beta [place] Monitoring Plan Monitoring plan: standard ASA. Post Procedure Analgesic Plan Postoperative analgesic plan: parenteral or oral opioids and multimodal analgesia. Informed Consent Anesthetic risks, benefits, alternatives, personnel and consent discussed: yes. Patient / Responsible Republican agrees to proceed: yes Patient / Surrogate agrees to blood products: blood products not planned Significant changes in the patient condition since the History and Physical, not otherwise documented in primary service progress note: no. Vitals Value Taken Time BP 155/86 02/26/23 1012 Pulse 97 02/26/23 1012 Resp 16 02/26/23 1012 Temp 36.4 ?C (97.6 ?F) 02/26/23 1012 SpO2 99 % 02/26/23 1012 Outpatient Medications as of 02/26/2023 Medication Sig - cholecalciferol (VITAMIN D3) 50 mcg (2,000 unit) tablet Take 5,000 Units by mouth one time a week. - cranberry fruit (CRANBERRY) 450 mg tab Take 450 mg by mouth. - rosuvastatin (CRESTOR) 20 mg tablet Take 20 mg by mouth once daily. - sitaGLIPtin-metFORMIN (JANUMET) 50-1,000 mg per tablet Take 1 tablet by mouth twice daily with meals. Facility-Administered Medications as of 02/26/2023 Medication Dose Route Frequency - lactated ringers iv infusion 30 mL/hr INTRAVENOUS CONTINUOUS - lidocaine (PF) 10 mg/mL (1 %) 1-2 mg injection (XYLOCAINE) 0.1-0.2 mL INTRADERMAL PRN I have interviewed and examined the patient. I have reviewed the medical record and/or the pre-anesthesia evaluation, pertinent labs, and test results. This contains updated information obtained within 48 hours of Surgery/Procedure. SIGNATURE: Kimberly Castano APRN.CRNA PATIENT NAME: Muriel Hargrove DATE: February 26, 2023 TIME: 10:34 AM CSN: [id number] Normal [facility] Colonoscopyon 02-26-2023 Colonoscopy [facility] Patient Name: Muriel Hargrove Procedure Date: 02/26/2023 10:29 AM Date of : 1960 Admit Type: Outpatient Age: 62 Room: [place] [address] Gender: Female Note Status: Finalized Attending MD: Jeovany Cohen MD Procedure: Colonoscopy Indications: High risk colon cancer surveillance: Personal history of colonic polyps Providers: Jeovany Cohen MD Patient Profile: Last Colonoscopy: 3 years ago. Referring Physician: Mariela Talbert (Referring ) Medicines: Propofol per Anesthesia Complications: No immediate complications. Requesting Provider: Procedure: Pre-Anesthesia Assessment: - Prior to the procedure, a History and Physical was performed, and patient medications and allergies were reviewed. The patient's tolerance of previous anesthesia was also reviewed. The risks and benefits of the procedure and the sedation options and risks were discussed with the patient. All questions were answered, and informed consent was obtained. Prior Anticoagulants: The patient has taken no anticoagulant or antiplatelet agents. ASA Grade Assessment: II - A patient with mild systemic disease. After reviewing the risks and benefits, the patient was deemed in satisfactory condition to undergo the procedure. After I obtained informed consent, the scope was passed under direct vision. Throughout the procedure, the patient's blood pressure, pulse, and oxygen saturations were monitored continuously. The Colonoscope was introduced through the anus and advanced to the cecum, identified by appendiceal orifice and ileocecal valve. I was present and participated during the entire procedure, including non-guallpa portions, and during the administration and monitoring of Moderate Sedation. The colonoscopy was performed without difficulty. The patient tolerated the procedure well. The quality of the bowel preparation was fair. The ileocecal valve, appendiceal orifice, and rectum were photographed. Moderate Sedation: MAC anesthesia was administered by the anesthesia team. Findings: Two sessile polyps were found in the proximal transverse colon. The polyps were 5 to 10 mm in size. These polyps were removed with a cold snare. Resection and retrieval were complete. Impression: - Preparation of the colon was fair. - Two 5 to 10 mm polyps in the proximal transverse colon, removed with a cold snare. Resected and retrieved. Recommendation: - Resume previous diet. - Continue present medications. - Repeat colonoscopy in 5 years for surveillance. - Await pathology results. - The patient is not currently taking anticoagulant or antiplatelet agents. - Patient has a contact number available for emergencies. The signs and symptoms of potential delayed complications were discussed with the patient. Return to normal activities tomorrow. Written discharge instructions were provided to the patient. Procedure Code(s): --- Professional --- 74936, Colonoscopy, flexible; with removal of tumor(s), polyp(s), or other lesion(s) by snare technique CPT copyright 202 [employer]. All rights reserved. The codes documented in this report are preliminary and upon sheeter helper review may be revised to meet current compliance requirements. Attending Participation: I personally performed the entire procedure. Scope In: 10:43:42 AM Scope Out: 10:57:58 AM MD Jeovany Mason MD 02/26/2023 11:03:09 AM This report has been signed electronically by Jeovany Cohen MD Number of Addenda: 0 Note Initiated On: 02/26/2023 10:29 AM Estimated Blood Loss: Estimated blood loss: none. [facility] Study observatio non 02-26-2023 [facility] Patient Name: Muriel Hargrove Procedure Date: 02/26/2023 10:29 AM Date of : 1960 Admit Type: Outpatient Age: 62 Room: [place] [address] Gender: Female Note Status: Finalized Attending MD: Jeovany Cohen MD Procedure: Colonoscopy Indications: High risk colon cancer surveillance: Personal history of colonic polyps Providers: Jeovany Cohen MD Patient Profile: Last Colonoscopy: 3 years ago. Referring Physician: Mariela Talbert (Referring MD) Medicines: Propofol per Anesthesia Complications: No immediate complications. Requesting Provider: Procedure: Pre-Anesthesia Assessment: - Prior to the procedure, a History and Physical was performed, and patient medications and allergies were reviewed. The patient's tolerance of previous anesthesia was also reviewed. The risks and benefits of the procedure and the sedation options and risks were discussed with the patient. All questions were answered, and informed consent was obtained. Prior Anticoagulants: The patient has taken no anticoagulant or antiplatelet agents. ASA Grade Assessment: II - A patient with mild systemic disease. After reviewing the risks and benefits, the patient was deemed in satisfactory condition to undergo the procedure. After I obtained informed consent, the scope was passed under direct vision. Throughout the procedure, the patient's blood pressure, pulse, and oxygen saturations were monitored continuously. The Colonoscope was introduced through the anus and advanced to the cecum, identified by appendiceal orifice and ileocecal valve. I was present and participated during the entire procedure, including non-guallpa portions, and during the administration and monitoring of Moderate Sedation. The colonoscopy was performed without difficulty. The patient tolerated the procedure well. The quality of the bowel preparation was fair. The ileocecal valve, appendiceal orifice, and rectum were photographed. Moderate Sedation: MAC anesthesia was administered by the anesthesia team. Findings: Two sessile polyps were found in the proximal transverse colon. The polyps were 5 to 10 mm in size. These polyps were removed with a cold snare. Resection and retrieval were complete. Impression: - Preparation of the colon was fair. - Two 5 to 10 mm polyps in the proximal transverse colon, removed with a cold snare. Resected and retrieved. Recommendation: - Resume previous diet. - Continue present medications. - Repeat colonoscopy in 5 years for surveillance. - Await pathology results. - The patient is not currently taking anticoagulant or antiplatelet agents. - Patient has a contact number available for emergencies. The signs and symptoms of potential delayed complications were discussed with the patient. Return to normal activities tomorrow. Written discharge instructions were provided to the patient. Procedure Code(s): --- Professional --- 47236, Colonoscopy, flexible; with removal of tumor(s), polyp(s), or other lesion(s) by snare technique CPT copyright 2020 [employer]. All rights reserved. The codes documented in this report are preliminary and upon sheeter helper review may be revised to meet current compliance requirements. Attending Participation: I personally performed the entire procedure. Scope In: 10:43:42 AM Scope Out: 10:57:58 AM MD Jeovany Mason MD 02/26/2023 11:03:09 AM This report has been signed electronically by Jeovany Cohen MD Number of Addenda: 0 Note Initiated On: 02/26/2023 (more content not included)... [facility] Radiology Study observation (narrative) [facility] HISTORY PHYSICALon HISTORY PHYSICAL HNO ID: [id number] Author: Jeovany Cohen MD Service: Gastroenterology Author Type: Physician Type: HANDP Filed: 02/26/2023 10:31 AM Note Text: HISTORY AND PHYSICAL Muriel Hargrove, 62 year old female here for colonoscopy, high risk for colon cancer, personal history of colon polyps Current history and physical on file: No Is a new History and Physical required for today's visit? Yes Indication for procedure: History of colon polyps PROCEDURE(S) SCHEDULED FOR: Colonoscopy with or without biopsies and with or without removal of polyps or lesions, dilation (any means), treatment of bleeding (any means), based on clinical findings. BASELINE BEHAVIOR: Calm BASELINE ORIENTATION: A AND O x3 All medications and allergies reviewed: Yes Skin Assessment: Warm dry muscus membranes pink Airway/Respiratory Assessment: Airway: visualization of the uvula- Yes Mouth: opening greater than 2 fingerbreadths- Yes Neck: full range of motion- Yes Breath sounds clear/equal- Yes Cardiac Assessment: Regular rate and rhythm without murmur Abdominal Assessment: Abdomen soft, non-tender, no masses or organomegaly. Sedation Plan: Deep Additional Comments: None Jeovany Cohen MD Normal [facility] NURSING PROGon 02-26-2023 NURSING PROG HNO ID: [id number] Author: Rob Syed, RN Service: Gastroenterology Author Type: Registered Nurse Type: Nursing Progress Note Filed: 02/26/2023 11:48 AM Note Text: Discharge instructions given and patient voices understanding. All questions answered. Rob Syed RN Normal [facility] SURGICAL PATHOLOGYon 023 CASE REPORT Normal [facility] Comment on above: Order Comment: Edmundo long Type: TISSUE SPECIMEN Ordering Facility: [facility] Address: [address] [place] [address] Result Comment: Surg ical Pathology Report Case: [id number] Authorizing Provider: Jeovany Cohen, Collected: 02/26/2023 10:51 AM Ordering Location: Ambulatory Surgery Received: 02/26/2023 09:19 PM Pathologist: Teo Azevedo MD Specimen: TRANSVERSE COLON POLYP, proximal X2 Performed By: #### S #### [facility] CLIA [id number] [address] [place] [address] OF [facility] CLIA [id number] [address] [place] [address] [facility] FINAL DIAGNOSIS Normal [facility] Comment on above: Order Comment: Edmundo long Type: TISSUE SPECIMEN Ordering Facility: [facility] Address: [address] [place] [address] Result Comment: A. C olon, transverse polyp, biopsy: - Tubular adenoma. Performed By: #### S #### [facility] CLIA [id number] [address] [place] [address] [place] [facility] CLIA [id number] [address] [place] [address] [place] FINAL PERFORMING LAB Normal [facility] Comment on above: Order Comment: Speci men Type: TISSUE SPECIMEN Ordering Facility: [facility] Address: [address] [place] [address] Result Comment: Diag nostic interpretation performed at [facility], [address] [place] [address] CLIA# [id number] Sales Enablement Manager: Rebecca Taylor M.D. Performed By: #### S #### [facility] CLIA [id number] [address] [place] [address] [place] [facility] CLIA [id number] [address] [place] [address] [place] GROSS DESCRIPTION Normal [facility] Comment on above: Order Comment: Speci men Type: TISSUE SPECIMEN Ordering Facility: [facility] Address: [address] [place] [address] Result Comment: A. T RANSVERSE COLON POLYP Received in formalin are multiple pieces of godinez, soft tissue aggregating to 1.2 x 0.2 x 0.1 cm. Totally submitted in one cassette. Gross examination performed at [facility], [address] [place] [address] FFS 02/27/2023 1:50 AM Performed By: #### S #### [facility] CLIA [id number] [address] [place] [address] [place] [facility] CLIA [id number] [address] [place] [address] [place] CNCOon 02-16-2023 CNCO Letter Text Normal [facility] CNPNon 12-22-2022 CNPN Telephone (GSTNOR) MURIEL HARGROVE ([id number]) 1960 F Date Time Provider Department 12/22/22 TOM PERLA During your visit today, we recorded the following information about you: Ericka Reyes 12/22/2022 3:33 PM Signed Indication: HIGH RISK SCREENING COLONOSCOPY Height: 5'5 Weight: 160 BMI: 26 Have you ever been told you were difficult to intubate? No (If yes, schedule at hospital) Recent stroke or cardiac event in the past 6 months? No (ex: heart attack or stent placement) Chest pain or shortness of breath on exertion? No If yes, give to EXTRUSION DIE COORDINATOR to evaluate. History of COPD/Emphysema/Asthma/ or Sleep Apnea? No If uses an inhaler, have pt bring inhaler with them. On oxygen at home? No If yes, give to EXTRUSION DIE COORDINATOR to evaluate. Implanted defibrillator (ACD)? No If yes, schedule at hospital Allergies: Latex, Adhesives, or Medication? No If anaphylactic reaction to latex, schedule at hospital On any blood thinners? No (Coumadin, Plavix, ASA, Xarelto, Brilinta, Eliquis, Pradaxa, Efficent etc.) If yes, need to check with physician on whether to stop them or OV Are you insulin dependent? Are your sugars in control? Ask what BS is running. No If controlled sugars needs scheduled in early AM, If uncontrolled sugars and are over 250 needs to be scheduled at hospital. Any kidney/liver disease or on dialysis? No If cirrhosis pt., have EXTRUSION DIE COORDINATOR review chart Do you have a history of seizures? No If yes, when was last seizure? Tracheostomy new or old No If yes, schedule at hospital Any surgery or radiation to the head or neck? No If can't move neck side to side AND up and down, schedule at hospital. Radiation to neck or head automatically gets scheduled at hospital COVID patients. Are you still having symptoms such as shortness of breath, on oxygen, using inhalers, seeing shoer? No If yes, have EXTRUSION DIE COORDINATOR evaluate patient Personal History Colon polyps? Yes Colon cancer? No Crohn's Disease? No Ulcerative Colitis? No Who/where? Approx date Family History Colon polyps? No Colon cancer? Yes, Brother Crohn's Disease? No Ulcerative Colitis? No Relationship? Approx age dx. Referring Physician: Office Visit Scheduled: Procedure Date Scheduled: Allergies As of Date: 12/22/2022 (No Known Allergies) Date Reviewed: 04/18/2021 Reviewed by: Enedelia De La Torre DPM - Fully Assessed Reason for Visit: Screening order/checklist [Other] Primary Visit Diagnosis:Personal history of colonic polyps [Z86.010] Other Visit Diagnosis:Family history of colon cancer [Z80.0] Order(s):COLONOSCOPY SCREENING [GI51] Order #: [id number] FUTURE Prescriptions as of 12/22/2022 - rosuvastatin (CRESTOR) 20 mg tablet Take 20 mg by mouth once daily. - cholecalciferol (VITAMIN D3) 50 mcg (2,000 unit) tablet Take 5,000 Units by mouth one time a week. - cranberry fruit (CRANBERRY) 450 mg tab Take 450 mg by mouth. - sitaGLIPtin-metFORMIN (JANUMET) 50-1,000 mg per tablet Take 1 tablet by mouth twice daily with meals. Problem List As Of Date: 12/22/2022 (None) Encounter Status:Closed by ERICKA REYES on 12/22/22 [facility] Clinical Summary: HMSPatient IDon 10-15-2018 SOP Yokasta Alejo [facility] Work Phone: Office Visit: Follow-up by luna minor : 6on 10-15-2018 NEGATED: Highlighted rowProtein mass conc Done [facility] Work Phone: Vital Signs Date Time Vital Sign Value Performing Clinician Facility 02-26-2023 11:18-0400 Diastolic blood pressure 64 mm[Hg] Jeovany Cohen MD Work Phone: [facility] 02-26-2023 11:18-0400 Heart rate 75 /min Jeovany Cohen MD Work Phone: [facility] 02-26-2023 11:18-0400 Respiratory rate 16 /min Jeovany Cohen MD Work Phone: [facility] 02-26-2023 11:18-0400 SaO2% (BldA) [Mass fraction] 97 % Jeovany Cohen MD Work Phone: [facility] 02-26-2023 11:18-0400 Systolic blood pressure 132 mm[Hg] Jeovany Cohen MD Work Phone: [facility] 02-26-2023 11:03-0400 Body temperature 98.6 [degF] Jeovany Cohen MD Work Phone: [facility] 02-26-2023 10:12-0400 Body height 165.1 cm Jeovany Cohen MD Work Phone: [facility] 02-26-2023 10:12-0400 Body mass index (BMI) [Ratio] 26.13 kg/m2 Jeovany Cohen MD Work Phone: [facility] 02-26-2023 10:12-0400 Body weight 71.22 kg Jeovany Cohen MD Work Phone: [facility] 02-27-2022 10:06-0400 Body height 167 cm [facility] Work Phone: NEGATED: Highlighted [id number] 10:27-0400 BMI (Body Mass Index) 26.73 kg/m2 Timo Bon CLIMBING GUIDE [facility] Work Phone: NEGATED: Highlighted [id number] 10:27-0400 BP Diastolic 81 mm[Hg] Timo Crockett CLIMBING GUIDE [facility] Work Phone: NEGATED: Highlighted [id number] 10:27-0400 BP Diastolic 80 mm[Hg] Timo Crockett CLIMBING GUIDE [facility] Work Phone: NEGATED: Highlighted [id number] 10:27-0400 BP Systolic 146 mm[Hg] Timo Crockett SHEREEN [facility] Work Phone: NEGATED: Highlighted [id number] 10:27-0400 BP Systolic 145 mm[Hg] Timo Bonmeg REGAN [facility] Work Phone: NEGATED: Highlighted [id number] 10:270400 Height 167.64 cm Timo Crockett LPN [facility] Work Phone: NEGATED: Highlighted [id number] 10:270400 Height 168 cm Timo Crockett LPN [facility] Work Phone: NEGATED: Highlighted [id number] 10:27-0400 Pulse (Heart Rate) 71 /min Timo Crockett CLIMBING GUIDE [facility] Work Phone: NEGATED: Highlighted [id number] 10:27-0400 Weight 74.84 kg Timo Crockett LPN [facility] Work Phone: NEGATED: Highlighted [id number] 10:27-0400 Weight 75 kg Timoosbaldo Crockett CLIMBING GUIDE [facility] Work Phone: Encounters Encounter Date Encounter Type Care Provider Facility Start: 03-29-2024 End: 03-29-2024 ambulatory ELIGIO CAMPOS Facility:[facility] Start: 03-28-2024 End: 03-28-2024 Telephone encounter [facility] Start: 07-27-2023 End: 08-01-2023 ambulatory MARISSA HUYNH MD Facility:[facility] Start: 07-27-2023 End: 07-31-2023 Outreach Lab MARISSA HUYNH MD [facility] Start: 03-05-2023 End: 03-05-2023 ambulatory [facility] Work Phone: Start: 03-05-2023 End: 03-05-2023 Patient encounter procedure [facility] Breast Imaging Work Phone: Start: 02-26-2023 End: 02-26-2023 ambulatory MARIELA TALBERT Facility:[facility] Start: 02-26-2023 End: 02-26-2023 Subsequent hospital visit by physician Jeovany Cohen MD Work Phone: Ambulatory Surgery Comment on above: Personal history of colonic polyps [Z86.010] Start: 02-24-2023 ambulatory Jeovany Cohen MD Work Phone: Ambulatory Surgery Start: 12-22-2022 Telephone encounter Tom farmer MD Work Phone: [facility] [place] Comment on above: Screening order/chec klist Start: 02-27-2022 End: 02-27-2022 ambulatory [facility] Work Phone: Start: 02-27-2022 End: 02-27-2022 Patient encounter procedure [facility]-Outpatient Bone Densitometry Start: 10-15-2018 End: 10-15-2018 Ot evaluation Charlene Villatoro MD Work Phone: [facility] Work Phone: Start: 08-24-2018 End: 08-24-2018 Emergency department patient visit MARIELA Au YOSSI Facility:[facility] Procedures Date Procedure Procedure Detail Performing Clinician Start: 03-05-2023 Screening mammography Start: 02-26-2023 Level iv surg pathol ogy gross&microscopic exam Jeovany Cohen MD Work Phone: Start: 02-26-2023 Colonoscopy flx dx w /collj spec when pfrmd Tom Perla MD Work Phone: Start: 02-26-2023 Colonoscopy Jeovany rodgers MD Work Phone: Start: 02-27-2022 Dual energy X-ray absorptiometry Start: 02-27-2022 Screening mammography Start: 05-18-2020 Surgery of cataract of left eye MARISSA HUYNH MD Start: 01-02-2020 Colonoscopy Tom farmer MD Work Phone: section MARISSA Wagner MD Dilation and curettage HORACE HUYNH MD Hysterectomy MARISSA HUYNH MD Ligation of fallopian tube A PATTY HUYNH MD Plan of Treatment Date Care Activity Detail Author Start: 2033 RSV Vaccine (1 - 1-d ose 75+ series) RSV Vaccine (1 - 1-dose 75+ series) [facility] Start: 02-26-2026 Screening for malign ant neoplasm of colon [facility] Start: 01-17-2024 Covid-19 Vaccine ( season) Covid-19 Vaccine () [facility] Start: 01-17-2024 Covid-19 Vaccine () Covid-19 Vaccine () [facility] Start: 01-17-2024 Influenza vaccination Influenza Vacc ine (#1) [facility] Start: 05-18-2023 Advance Directive Discussion Advance Directive Discussion [facility] Start: 2023 Pneumococcal Vaccine : 65+ (1 of 1 - PCV) Pneumococcal Vaccine: 65+ (1 of 1 - PCV) [facility] Start: 2023 Screening for osteoporosis Bone Density Screening [facility] Start: 01-16-2023 Covid-19 Vaccine ( season) Covid-19 Vaccine ( season) [facility] Start: 01-16-2023 [facility]: 01-01-[facility]23 Colonoscopy COLONOSCOPY [facility] Start: 01-01-2023 COLORECTAL CANCER SCREENING COLORECTAL CANCER SCREENING [facility] Start: 05-18-2022 DEPRESSION ASSESSMENT DEPRESSION ASS ESSMENT [facility] Start: 05-10-2021 COVID-19 VACCINE (4 - Moderna series) COVID-19 VACCINE (4 - Moderna series) [facility] Start: 10-15-2018 End: 10-15-2018 Appointment Appointment [facility] Work Phone: Start: 10-15-2018 End: 10-15-2018 Radex wrist complete minimum 3 views XR WRIST 3 VWS-RT [facility] Work Phone: Start: 2018 RSV Vaccine (1 - 1-d ose 60+ series) RSV Vaccine (1 - 1-dose 60+ series) [facility] Start: 2008 SHINGRIX VACCINE (1 of 2) SHINGRIX VACCINE (1 of 2) [facility] Start: 2003 COLOGUARD (FIT-DNA) COLOGUARD (FIT-D NA) [facility] Start: [address] COLONOGRAPHY [facility] Start: 2003 DIABETES SCREEN DIABETES SCREEN [facility] Start: 2003 Diabetes Screening Diabetes Screenin g [facility] Start: 2003 FECAL OCCULT BLOOD FECAL OCCULT BLOO D [facility] Start: 2003 Lipid 1996 panel - Serum or Plasma Lipid Screening [facility] Start: 2003 Lipid panel Lipid Screening [facility] Start: 2003 LIPID SCREEN LIPID SCREEN [facility] [facility] Start: 2003 Screening for malign ant neoplasm of colon [facility] Start: 2003 SIGMOIDOSCOPY SIGMOIDOSCOPY [facility] Start: 1998 Mammography [facility] Start: 1998 Screening for malign ant neoplasm of breast Mammogram Screening [facility] Start: 1988 HPV TESTING HPV TESTING [facility] Start: 1979 PAP TESTING PAP TESTING [facility] Start: 1977 Urine microalbumin profile [facility] Start: 1976 Anxiety Screening Anxiety Screening [facility] Start: 1976 Depression Screening Depression Scre ening [facility] Start: 1976 HEPATITIS C SCREENING HEPATITIS C [facility] Start: 1976 Hepatitis C screening Hepatitis C [facility] Start: 1976 HIV SCREENING HIV SCREENING [facility] Start: 1976 HIV screening HIV Screening [facility] Patient Education \cps-sql1\CPS_ PtEducati on\htn.pdf [facility] Work Phone: End: 12-23-2023 Screening colonoscopy COLONOSCOPY SCREENING Endoscopy Routine Personal history of colonic polyps Family history of colon cancer 1 Occurrences starting 12/22/2022 until 12/23/2023 [facility] Work Phone: Comment on above: 1 Occurrences starti ng 12/22/2022 until 12/23/2023 [facility] Immunizations Immunization Date Immunization Notes Care Provider Amanda chu 03-17-2022 influenza virus vaccine, unspecified formulation Jeovany Cohen MD Work Phone: [facility] No information available. Timo Crockett LPN [facility] Work Phone: Payers Date Payer Category Payer Self-pay [id number] 2023 Medicare [id number] 2023 Private Health Insurance [facility] [id number] 2018 Unknown [id number] 2018 Unknown [id number] 1958 Unknown [id number] 1958 Unknown [id number] 1958 Unknown [id number] Unknown [id number] Unknown [id number] Social History Date Type Detail Facility Start: 10-15-2018 End: 10-15-2018 Assertion Unknown if ever smoked [facility] Work Phone: Start: 1960 Sex Assigned At Female [facility] Start: 12-29-2016 End: 02-26-2023 Tobacco smoking status NHIS Never smoked tobacco [facility] Start: 12-29-2016 End: 02-26-2023 Tobacco use and exposure Smokeless tobacco non-user [facility] Start: 04-18-2021 End: 03-05-2023 Alcohol intake Current non-drinker of alcohol (finding) [facility] Start: 04-22-2020 End: 04-18-2021 History of Social function [facility] Start: 04-22-2020 End: 04-18-2021 Tobacco use panel [facility] PHQ2 Score 0 [facility] Start: 1960 Sex Assigned At Not on file [facility] Sex Assigned At Sex [facility] Clinical Notes 12-22-2022 to 03-28-2024 Telephone Encounter - Nelson Landeros PSS - 03/28/2024 4:45 PM ESTTelephone Encounter - Nelson Landeros PSS - 03/28/2024 4:45 PM Rob Baldwin RN - 02/26/2023 11:42 AM EDTRadiology Note Date & Type Note Facility 03-28-2024 Telephone encounter Note Patient placed an appt. Request on the web for [facility] 2 [facility] called and she asked me to call her back I called back in the afternoon and no VM set up. MADELYN Guallpa March 28, 2024 4:46 PM [facility] 03-28-2024 Miscellaneous Notes Patient placed an appt. Request on the web for [facility] called and she asked me to call her back I called back in the afternoon and no VM set up. MADELYN Guallpa March 28, 2024 4:46 PM documented in this encounter [facility] 02-26-2023 Note HNO ID: [id number] Author: Rob Syed, RN Service: Gastroenterology Author Type: Registered Nurse Type: Nursing Progress Note Filed: 02/26/2023 11:31 AM Note Text: Physician at bedside. [facility] 02-26-2023 Nurse Note Discharge instructions given and patient voices understanding. All questions answered. Rob Syed RN [facility] 02-26-2023 Nurse Note Discharge instructions given and patient voices understanding. All questions answered. Rob Syed RN Physician at bedside. documented in this encounter [facility] 02-26-2023 Nurse Note Physician at bedside. [facility] 02-26-2023 Nurse procedure note Abdominal support applied. [facility] 02-26-2023 Miscellaneous Notes Abdominal support applied. Please call patient and advise that colonoscopy was abnormal, precancerous polyp. Recall in 5 years Jeovany Cohen MD documented in this encounter [facility] 02-26-2023 History and physical note HISTORY AND PHYSICAL Muriel Hargrove, 62 year old female here for colonoscopy, high risk for colon cancer, personal history of colon polyps Current history and physical on file: No Is a new History and Physical required for today's visit? Yes Indication for procedure: History of colon polyps PROCEDURE(S) SCHEDULED FOR: Colonoscopy with or without biopsies and with or without removal of polyps or lesions, dilation (any means), treatment of bleeding (any means), based on clinical findings. BASELINE BEHAVIOR: Calm BASELINE ORIENTATION: A & O x3 All medications and allergies reviewed: Yes Skin Assessment: Warm dry muscus membranes pink Airway/Respiratory Assessment: Airway: visualization of the uvula- Yes Mouth: opening greater than 2 fingerbreadths- Yes Neck: full range of motion- Yes Breath sounds clear/equal- Yes Cardiac Assessment: Regular rate and rhythm without murmur Abdominal Assessment: Abdomen soft, non-tender, no masses or organomegaly. Sedation Plan: Deep Additional Comments: None Jeovany Cohen MD [facility] Work Phone: 02-26-2023 History and physical note HISTORY AND PHYSICAL Muriel Hargrove, 62 year old female here for colonoscopy, high risk for colon cancer, personal history of colon polyps Current history and physical on file: No Is a new History and Physical required for today's visit? Yes Indication for procedure: History of colon polyps PROCEDURE(S) SCHEDULED FOR: Colonoscopy with or without biopsies and with or without removal of polyps or lesions, dilation (any means), treatment of bleeding (any means), based on clinical findings. BASELINE BEHAVIOR: Calm BASELINE ORIENTATION: A & O x3 All medications and allergies reviewed: Yes Skin Assessment: Warm dry muscus membranes pink Airway/Respiratory Assessment: Airway: visualization of the uvula- Yes Mouth: opening greater than 2 fingerbreadths- Yes Neck: full range of motion- Yes Breath sounds clear/equal- Yes Cardiac Assessment: Regular rate and rhythm without murmur Abdominal Assessment: Abdomen soft, non-tender, no masses or organomegaly. Sedation Plan: Deep Additional Comments: None Jeovany Cohen MD documented in this encounter [facility] 02-26-2023 Progress note Formatting of t his note might be different from the original. Please call patient and advise that colonoscopy was abnormal, precancerous polyp. Recall in 5 years Jeovany Cohen MD [facility] 02-17-2023 Evaluation + Plan note Future Scheduled TestsMA Mammo Screening Bilateral w/ [place] 02/17/23 [facility] 12-22-2022 Miscellaneous Notes Indication: HIGH RISK SCREENING COLONOSCOPY Height: 5'5 Weight: 160 BMI: 26 Have you ever been told you were difficult to intubate? No (If yes, schedule at hospital) Recent stroke or cardiac event in the past 6 months? No (ex: heart attack or stent placement) Chest pain or shortness of breath on exertion? No If yes, give to EXTRUSION DIE COORDINATOR to evaluate. History of COPD/Emphysema/Asthma/or Sleep Apnea? No If uses an inhaler, have pt bring inhaler with them. On oxygen at home? No If yes, give to EXTRUSION DIE COORDINATOR to evaluate. Implanted defibrillator (ACD)? No If yes, schedule at hospital Allergies: Latex, Adhesives, or Medication? No If anaphylactic reaction to latex, schedule at hospital On any blood thinners? No (Coumadin, Plavix, ASA, Xarelto, Brilinta, Eliquis, Pradaxa, Efficent etc.) If yes, need to check with physician on whether to stop them or OV Are you insulin dependent? Are your sugars in control? Ask what BS is running. No If controlled sugars needs scheduled in early AM, If uncontrolled sugars and are over 250 needs to be scheduled at hospital. Any kidney/liver disease or on dialysis? No If cirrhosis pt., have EXTRUSION DIE COORDINATOR review chart Do you have a history of seizures? No If yes, when was last seizure? Tracheostomy new or old No If yes, schedule at hospital Any surgery or radiation to the head or neck? No If can't move neck side to side & up and down, schedule at hospital. Radiation to neck or head automatically gets scheduled at hospital COVID patients. Are you still having symptoms such as shortness of breath, on oxygen, using inhalers, seeing shoer? No If yes, have EXTRUSION DIE COORDINATOR evaluate patient Personal History Colon polyps? Yes Colon cancer? No Crohn's Disease? No Ulcerative Colitis? No Who/where? Approx date Family History Colon polyps? No Colon cancer? Yes, Brother Crohn's Disease? No Ulcerative Colitis? No Relationship? Approx age dx. Referring Physician: Office Visit Scheduled: Procedure Date Scheduled: documented in this encounter [facility] Evaluation note No assessment inform ation available [facility] Work Phone: Evaluation note Diagnosis Personal history of colonic polyps- Primary Family history of colon cancer Family history of malignant neoplasm of gastrointestinal tract [facility] Diagnosis Personal history of colonic polyps Family history of colon cancer Family history of malignant neoplasm of gastrointestinal tract [facility] Narrative No data available for this section [facility] Hospital Discharge instructions No data available for this section [facility] Progress note No data available for this section [facility] Reason for referral (narrative)* Outpatient Procedure (Routine) - Authorized Specialty Diagnoses / Procedures Referred By Titi carrillo Referred To Contact [facility] Diagnoses Personal history of colonic polyps Family history of colon cancer Procedures COLONOSCOPY SCREENING COLONOSCOPY FLX DX W/COLLJ SPEC WHEN Tom Wells MD [address] [place] [address] [facility] [place] [address] Referral ID Status Reason Start Date Expiration Date Visits Requested Visits Authorized [id number] Authorized Auto-Generat ed Referral 12/22/2022 12/23/2023 1 1 [facility] for referral (narrative)* Outpatient Procedure (Routine) - Closed Specialty Diagnoses / Procedures Referred By Titi carrillo Referred To Contact [facility] Diagnoses Personal history of colonic polyps Family history of colon cancer Procedures COLONOSCOPY SCREENING COLONOSCOPY FLX DX W/COLLJ SPEC WHEN Tom Wells MD [address] [place] [address] [facility] [address] [place] [address] Referral ID Status Reason Start Date Expiration Date V isits Requested Visits Authorized [id number] Closed Auto-Generate d Referral 12/22/2022 12/23/2023 1 1 [facility] for visit Narrative* Outpatient Procedure (Routine) - Closed Specialty Diagnoses / Procedures Referred By Contac t Referred To Contact [facility] Diagnoses Personal history of colonic polyps Family history of colon cancer Procedures COLONOSCOPY SCREENING COLONOSCOPY FLX DX W/COLLJ SPEC WHEN Tom Wells MD [address] [place] [address] [facility] [address] [place] [address] Referral ID Status Reason Start Date Expiration Date V isits Requested Visits Authorized [id number] Closed Auto-Generate d Referral 12/22/2022 12/23/2023 1 1 [facility] Summary Purpose Family History No Family History Records FoundThere may be information available, but it has not been provided by the sender.No Family History Records Found No data available for this section No data available for this section No Family History Records FoundNo Family History Records FoundNo Family History Records Found Advance Directives No Advanced Directives Records Found Advance Directive Response Recorded Date/ Time Living Will No September 20, 2016 10 :37pm Power of Carton Forming Machine Helper No September 20, 2016 10:37pm Chief Complaint Chief Complaint Description Start Date right wrist fracture care Preliminary chief co mplaint data, not yet signed by the author as of Instructions Instruction Description Start Date CompletedPlease follow-up wi th Primary Care Physician or Fish Peddler for treatment or adjustment of medication regarding elevated blood pressure. Assessments There may be information available, but it has not been provided by the sender. Review of System There may be information available, but it has not been provided by the sender. History of Present Illness There may be information available, but it has not been provided by the sender. Chief Complaint and Reason for Visit Chief Complaint SCREENING,OSTEO Chief Complaint SCREEN Additional Source Comments INFORMATION SOURCE (unrecogn ized section and content) DATE CREATED AUTHOR 08/25/2018 [facility] DATE CREATED AUTHOR AUTHOR'S ORGANIZ ATION 03/03/2023 [facility] DATE CREATED AUTHOR AUTHOR'S ORGANIZ ATION 10/01/2023 [facility] ([place]) DATE CREATED AUTHOR AUTHOR'S ORGANIZ ATION 03/30/2024 [facility] DATE CREATED AUTHOR AUTHOR'S ORGANIZ ATION 04/29/2024 [facility] Reason for Visit (unrecogniz ed section and content) Reason For Visit Description Follow-up by complaint Preliminary reason f or visit data, not yet signed by the author as of right wrist fracture care Reason Comments Screening order/checklist Goals (unrecognized section and content) Goals may be documented in a n alternate sectionGoals may be documented in an alternate section No data available for this section No data available for this section Source Comments (unrecognize d section and content) In the event this informatio n is protected by the Federal Confidentiality of Alcohol and Drug Abuse Patient Records regulations: The Federal rules restrict any use of the information to criminally investigate or prosecute any alcohol or drug abuse patient.[facility] the event this information is protected by the Federal Confidentiality of Alcohol and Drug Abuse Patient Records regulations: The Federal rules restrict any use of the information to criminally investigate or prosecute any alcohol or drug abuse patient.[facility] HospitalIn the event this information is protected by the Federal Confidentiality of Alcohol and Drug Abuse Patient Records regulations: The Federal rules restrict any use of the information to criminally investigate or prosecute any alcohol or drug abuse patient.[facility] HospitalIn the event this information is protected by the Federal Confidentiality of Alcohol and Drug Abuse Patient Records regulations: The Federal rules restrict any use of the information to criminally investigate or prosecute any alcohol or drug abuse patient.[facility] Care Teams (unrecognized sec tion and content) Phonograph Cartridge Assembler Relationship Specialty Start Date End Date Mariela Talbert MD [address] [place] [id number] PCP - General Family Medicine 12/22/16 Phonograph Cartridge Assembler Relationship Specialty Start Date End Date Mariela Talbert MD [address] [place] [phone] PCP - General Family Medicine 12/22/16 Team Status: Active Member Role Status Dates MARIELA TALBERT Family Provider Active MARIELA TALBERT Primary Care Provider Active Team Status: Inactive Member Role Status Dates YOSSI SIERRA Primary Care Provider Active Dr. Marissa Huynh MD Attending Provider, Referring Pr ovider Active Phonograph Cartridge Assembler Relationship Specialty Start Date End Date Mariela Talbert MD [address] [place] [phone] PCP - General Family Medicine 12/22/16 Phonograph Cartridge Assembler Relationship Specialty Start Date End Date Mariela Talbert MD [address] [facility] [address] [place] [phone] PCP - General Family Medicine 12/22/16 FOR RECORDS PERTAINING TO PATIENTS WHO ARE OR HAVE BEEN ENROLLED IN A CHEMICAL DEPENDENCY/SUBSTANCEABUSE PROGRAM, SOME INFORMATION MAY BE OMITTED. This clinical summary was aggregated from multiple sources. Caution should be exercised in using it in the provision of clinical care. This summary normalizes information from multiple sources, and as a consequence, information in this document may materially change the coding, format and clinical context of patient data. In addition, data may be omitted in some cases. CLINICAL DECISIONS SHOULD BE BASED ON THE PRIMARY CLINICAL RECORDS. [facility] [employer]. provides no warranty or guarantee of the accuracy or completeness of information in this document.
== END | disposition home or self-care (01) ==
LOC: OPBI 13:26
PROVIDERS: Referring Provider Obstetrics & Gynecology Gynecology; Visit Provider Obstetrics & Gynecology Gynecology
DX: Z12.31 Encounter for screening mammogram for malignant neoplasm of breast (principal)
CPT/HCPCS: 77063; 77067